=== PATIENT | female | born 1990 | race Caucasian/White ===

== ENCOUNTER 2017-08-27 22:47 | Emergency (ER) | payer MEDICAID ==
--- NOTE | 2017-08-27 23:24 | PD ---
HPI Chief Complaint Contractions Date Seen: Aug 27, 2017 Time Seen: 23:20 Travel History International Travel<30 Days: No Contact w/Intl Traveler<30Days: No Known Affected Area: No History of Present Illness HPI Patient is 27-year-old white female A1 at 40 weeks and 6 days presents with contractions. Patient scheduled to come in tomorrow night for induction of labor due to being 41 weeks, she is no bleeding or leakage of fluid heart rate tracing is reactive baby is active and she is having contractions on the monitor every 4-5 minutes Weeks Gestation: 40 Para: 4 : 6 History Obstetric History Obstetric History 4 Vaginal deliveries Social History Alcohol Use: No Tobacco Use: No Substance Abuse: No Review of Systems General / Constitutional: No: Fever, Weight Gain, Chills, Other Eyes: No: Diploplia, Blurred Vision, Visual changes, Pain, Photophobia HENT: No: Headaches, Vertigo, Lightheadedness Cardiovascular: No: Irregular Rhythm, Chest Pain or Discomfort, Palpitations, Tachycardia, Syncope, Varicosities, Edema, Cyanosis Respiratory: No: Cough, Short of Breath, Other Gastrointestinal: No: Nausea, Vomiting, Diarrhea Genitourinary: No: Decreased Urinary Output, Oliguria Musculoskeletal: No: Limited ROM, Weakness, Cramping, Edema, Pain Skin: No Rash, No Itching, No Dryness, No Lumps, No Change in Pigmentation, No Change in Nails, No Alopecia, No Lesions Neurologic: No: Weakness, Dizziness, Syncope, Focal Abnormalities, Coordination Problem, Headache, Slurred Speech, Seizures Psychiatric: No: Depression, Suicidal Ideations, Homicidal Ideation Endocrine: No: Heat Intolerance, Cold Intolerance, Polydipsia, Polyuria, Other Physical Exam Narrative GENERAL: Well-nourished, well-developed patient. SKIN: Warm and dry. HEAD: Normocephalic and atraumatic. EYES: No scleral icterus. No injection or drainage. ENT: No nasal drainage noted. Mucous membranes pink. Airway patent. NECK: Supple, trachea midline. No JVD. CARDIOVASCULAR: Regular rate and rhythm without murmurs, gallops, or rubs. RESPIRATORY: Breath sounds equal bilaterally. No accessory muscle use. BREASTS: Bilateral exam showed no masses , no retractions, no nipple discharge. ABDOMEN/GI: Abdomen soft, non-tender, bowel sounds present, no rebound, no guarding Gravid to [-40] weeks size Fundal Height: [40-] GENITOURINARY: External Genitalia: intact and normal in appearance BUS glands: [-] Cervix: [-post] Dilatation: [-0] Effacement: [0-] Station: [-3] Presentation: [vtx-] Membranes: [intact ] Uterine Contractions: [q 5 min-] FHT's: Category: [1-] Baseline: [-122] Reactive: [yes-] Variability: [mod-] Decels: [0-] EXTREMITIES: No cyanosis or edema. BACK: Nontender without obvious deformity. No CVA tenderness. NEUROLOGICAL: Awake and alert. Motor and sensory grossly within normal limits. Five out of 5 muscle strength in all muscle groups. Normal speech. MDM Interpretation(s) Patient is 27-year-old white female 40-41 weeks presents with contractions. She is a patient Nancy Kerns that was scheduled,. Tomorrow night for a scheduled induction for postdates. Here tonight cervix is fingertip thick and high, contractions are regular but not very painful, has no leakage of bleeding. Plan Plan to discharge patient home she is not in labor right now, she is to return tomorrow night for scheduled induction she may commence sooner if contractions she's having now Worsen and strength and pain Diagnosis Diagnosis: Primary Impression: False labor at or after 37 completed weeks of gestation, antepartum Disposition: 01 DISCHARGE HOME Condition: Stable Ramirez Barbosa II, MD Aug 27, 2017 23:24
== END 2017-08-27 23:33 | disposition home or self-care (01) ==
LOC: HOBED 22:47
DX: O47.1 False labor at or after 37 completed weeks of gestation (principal); Z3A.40 40 weeks gestation of pregnancy
CPT/HCPCS: 59025

== ENCOUNTER 2017-08-28 20:10 | Inpatient (IN) | payer MEDICAID ==
[~2017-08-28] VITALS: Ht 165.1 cm; Wt 71.2 kg
[2017-08-28] MEDS ORDERED: LACTATED RINGER'S 1000 ML INJ 1,000 ML IV PRN (21:36)
[2017-08-28] MEDS: LACTATED RINGER'S 1000 ML INJ 1,000 ML IV SCH ×2 (21:36→22:05)
[2017-08-28] MEDS ORDERED: SODIUM CHLOR 0.9% 1000 ML INJ 1,000 ML OTHER PRN (21:36)
[2017-08-28] MEDS ORDERED: SODIUM CHLORIDE 0.9% FLUSH 10 ML FLUSH IV FLUSH PRN (21:45)
[2017-08-28] MEDS ORDERED: SODIUM CHLORID 0.9% 500 ML INJ 500 ML IV PRN (21:45)
[2017-08-28] MEDS ORDERED: MISOPROSTOL 100 MCG TAB VAGINAL ONE (21:45)
[2017-08-28] MEDS ORDERED: LIDOCAINE HCL 1% 50 ML VIAL I-DERMAL PRN (21:45)
[2017-08-28] MEDS ORDERED: MINERAL OIL 10 ML VIAL TOPICAL PRN (21:45)
[2017-08-28] MEDS ORDERED: LIDOCAINE HCL 1% 50 ML VIAL INFIL PRN (21:45)
[2017-08-28] MEDS ORDERED: OXYTOCIN 30 UNITS-500ML PREMIX 500 ML IV ONE (21:45)
[2017-08-28] MEDS ORDERED: MISOPROSTOL 100 MCG TAB PO ONE (21:45)
[2017-08-28] MEDS ORDERED: ONDANSETRON HCL 4 MG/2 ML VIAL IV PUSH PRN (21:45)
--- NOTE | 2017-08-28 21:52 | HHI.HP ---
HPI Chief Complaint Postdates Date Seen: Aug 28, 2017 Time Seen: 21:46 Travel History International Travel<30 Days: No Contact w/Intl Traveler<30Days: No Known Affected Area: No History of Present Illness HPI 27-year-old 6 para 4 AB 1 at 41 and one sevenths weeks gestation by midtrimester ultrasound who received care with Nancy Kerns. She came to the triage unit last night for evaluation and was scheduled for induction of labor due to postdates . History Past Medical History Medical History: Denies Significant Hx Obstetric History Obstetric History 4 term vaginal deliveries without complication. Her youngest is 1 year. Past Surgical History Surgical History: No Previous Surgery Family History Family History: Negative Social History Alcohol Use: No Tobacco Use: No (stop this ) Substance Abuse: No Allergies-Medications (Allergen,Severity, Reaction): Coded Allergies: No Known Allergies (Verified Allergy, Unknown, 08/28/17) Review of Systems Except as stated in HPI: all other systems reviewed are Neg Physical Exam Narrative GENERAL: Well-nourished, well-developed patient. SKIN: Warm and dry. HEAD: Normocephalic and atraumatic. EYES: No scleral icterus. No injection or drainage. ENT: No nasal drainage noted. Mucous membranes pink. Airway patent. NECK: Supple, trachea midline. No JVD. CARDIOVASCULAR: Regular rate and rhythm without murmurs, gallops, or rubs. RESPIRATORY: Breath sounds equal bilaterally. No accessory muscle use. ABDOMEN/GI: Abdomen soft, non-tender, bowel sounds present, no rebound, no guarding Gravid to [-] weeks size Fundal Height: [-] GENITOURINARY: External Genitalia: intact and normal in appearance BUS glands: [Normal-] Cervix: [-] Dilatation: [-1] Effacement: [50-] Station: [--2] Presentation: [-Vertex] Membranes: [intact] Uterine Contractions: [-Rare irregular] FHT's: Category: [1-] Baseline: [-] Reactive: [-] Variability: [-] Decels: [-] EXTREMITIES: No cyanosis or edema. BACK: Nontender without obvious deformity. No CVA tenderness. NEUROLOGICAL: Awake and alert. Motor and sensory grossly within normal limits. Five out of 5 muscle strength in all muscle groups. Normal speech. Caprini VTE Risk Assessment Caprini VTE Risk Assessment: Mod/High Risk (score >= 2) Caprini Risk Assessment Model Point Value = 1 Point Value = 2 Point Value = 3 Point Value = 5 Age 41-60 Minor surgery BMI > 25 kg/m2 Swollen legs Varicose veins or History of unexplained or recurrent spontaneous Oral contraceptives or hormone replacement Sepsis (< 1 month) Serious lung disease, including pneumonia (< 1 month) Abnormal pulmonary function Acute myocardial infarction Congestive heart failure (< 1 month) History of inflammatory bowel disease Medical patient at bed rest Age 61-74 Arthroscopic surgery Major open surgery (> 45 min) Laparoscopic surgery (> 45 min) Malignancy Confined to bed (> 72 hours) Immobilizing plaster cast Central venous access Age >= 75 History of VTE Family history of VTE Factor V Leiden Prothrombin [id number] Lupus anticoagulant Anticardiolipin antibodies Elevated serum homocysteine Heparin-induced thrombocytopenia Other congenital or acquired thrombophilia Stroke (< 1 month) Elective arthroplasty Hip, pelvis, or leg fracture Acute spinal cord injury (< 1 month) Prophylaxis Regimen Total Risk Factor Score Risk Level Prophylaxis Regimen 0-1 Low Early ambulation 2 Moderate Order ONE of the following: *Sequential Compression Device (SCD) *Heparin 5000 units SQ BID 3-4 Higher Order ONE of the following medications: *Heparin 5000 units SQ TID *Enoxaparin/Lovenox 40 mg SQ daily (WT < 150 kg, CrCl > 30 mL/min) *Enoxaparin/Lovenox 30 mg SQ daily (WT < 150 kg, CrCl > 10-29 mL/min) *Enoxaparin/Lovenox 30 mg SQ BID (WT < 150 kg, CrCl > 30 mL/min) AND/OR *Sequential Compression Device (SCD) 5 or more Highest Order ONE of the following medications: *Heparin 5000 units SQ TID (Preferred with Epidurals) *Enoxaparin/Lovenox 40 mg SQ daily (WT < 150 kg, CrCl > 30 mL/min) *Enoxaparin/Lovenox 30 mg SQ daily (WT < 150 kg, CrCl > 10-29 mL/min) *Enoxaparin/Lovenox 30 mg SQ BID (WT < 150 kg, CrCl > 30 mL/min) AND *Sequential Compression Device (SCD) Data Data Vital Signs Reviewed: Yes Orders Orders Admit To Inpatient (08/28/17 ) Diet Liquid (08/29/17 Breakfast) Activity Oob Ad Hayley (08/28/17 21:36) ^ Labor Induction (08/28/17 21:36) ^ Vaginal Insert (08/28/17 21:36) ^ Vaginal Lavage (08/28/17 21:36) Heart (08/28/17 21:36) Misoprostol (Cytotec) (08/28/17 21:45) Misoprostol (Cytotec) (08/29/17 01:45) Lactated Ringer's 1000 Ml Inj (Lr 1000 M (08/28/17 21:36) Sodium Chloride 0.9% Flush (Ns Flush) (08/29/17 09:00) Sodium Chloride 0.9% Flush (Ns Flush) (08/28/17 21:45) Sodium Chlor 0.9% 1000 Ml Inj (Ns 1000 M (08/28/17 21:36) Misoprostol (Cytotec) (08/28/17 21:45) Inpatient Certification (08/28/17 ) Code Status (08/28/17 21:36) Vital Signs (Adult) .Per protocol (08/28/17 21:36) Heart (08/28/17 21:36) Amnioinfusion (08/28/17 21:36) Urinary Catheter Management .ONCE (08/28/17 21:36) Lactated Ringer's 1000 Ml Inj (Lr 1000 M (08/28/17 21:36) Lactated Ringer's 1000 Ml Inj (Lr 1000 M (08/28/17 21:36) Sodium Chlorid 0.9% 500 Ml Inj (Ns 500 M (08/28/17 21:45) Sodium Chlor 0.9% 1000 Ml Inj (Ns 1000 M (08/28/17 21:56) Lidocaine 1% Inj (50 Ml) (Xylocaine 1% I (08/28/17 21:45) Ondansetron Inj (Zofran Inj) (08/28/17 21:45) Fentanyl Inj (Fentanyl Inj) (08/28/17 21:45) Penicillin G Potassium Inj (Pfizerpen-G (08/28/17 21:45) Penicillin G Potassium Inj (Pfizerpen-G (08/29/17 01:45) Complete Blood Count With Diff (08/28/17 21:36) Hold Clot (08/28/17 21:36) Abo/Rh Blood Type (08/28/17 21:36) Drug Screen, Random Urine (08/28/17 21:36) Resp Oxygen Non Rebreathe Mask (08/28/17 ) ^ Epidural / Intrathecal Infus (08/28/17 21:36) Oxytocin 30 Units-500ml Premix (Pitocin (08/28/17 21:45) Lidocaine 1% Inj (50 Ml) (Xylocaine 1% I (08/28/17 21:45) Light Mineral Oil (Muri-Lube Oil) (08/28/17 21:45) Specimen To Be Collected PRN (08/28/17 21:36) Group B Strep: Positive Labs A positive, rubella immune, RPR nonreactive, hepatitis B negative, HIV negative , GC and Chlamydia negative Assessment/Plan Assessment and Plan Assessment: 27-year-old grand multipara at 41 weeks 1 day gestation by midtrimester ultrasound admitted for cervical ripening and induction Plan: Cytotec risks benefits and alternatives were reviewed with the patient and she consents to this. GBS prophylaxis Kee Law MD Aug 28, 2017 21:52
[2017-08-28] MEDS ORDERED: SODIUM CHLOR 0.9% 1000 ML INJ 1,000 ML IV PRN (21:56)
[2017-08-28] MEDS ORDERED: PENICILLIN G POTASSIUM INJ 5,000,000 UNITS in SODIUM CHLORIDE 0.9% INJ 100 ML IV ONE (22:00)
[2017-08-28 22:37] VITALS: BP 107/62; PULSE 73
[2017-08-28 22:45] VITALS: RESP 18
[2017-08-28 23:01] LABS: AUTOMATED NEUTROPHIL # 7.9 TH/MM3 (1.8-7.7); BASOPHIL # 0.1 TH/MM3 (0-0.2); BASOPHIL % 0.5 % (0.0-2.0); EOSINOPHIL # 0.1 TH/MM3 (0-0.4); EOSINOPHIL % 0.9 % (0.0-4.0); HEMATOCRIT 31.1 % (35.0-46.0); HEMO FLAGS DIFF FINAL; LYMPH % 24.1 % (9.0-44.0); LYMPHOCYTE # 2.8 TH/MM3 (1.0-4.8); MEAN CELL VOLUME 81.1 FL (80.0-100.0); MEAN CORPUSCULAR HEMOGLOBIN 27.4 PG (27.0-34.0); MEAN CORPUSCULAR HGB CONC 33.8 % (32.0-36.0); MONO % 6.4 % (0.0-8.0); NEUT % 68.1 % (16.0-70.0); PLATELET COUNT 271 TH/MM3 (150-450); RED BLOOD COUNT 3.84 MIL/MM3 (4.00-5.30); RED CELL DISTRIBUTION WIDTH 13.6 % (11.6-17.2); WHITE BLOOD COUNT 11.6 TH/MM3 (4.0-11.0)
[2017-08-28] MEDS ORDERED: fentaNYL 2MCG-BUPIV 0.125% INJ 100 ML ONE (23:54)
[2017-08-28 23:55] VITALS: PULSE 91; O2SAT 100
[2017-08-28] MEDS ORDERED: ePHEDrine/NS 25 MG/5 ML SYR ONE (23:56)
[2017-08-29] VITALS (42 sets, daily range): BP systolic 95–127; BP diastolic 36–91; PULSE 53–117; RESP 14–16; TEMP 97.9–99.1; O2SAT 99–100
[2017-08-29] MEDS ORDERED: NO SYSTEM NARCOTICS PRN (01:00)
[2017-08-29] MEDS ORDERED: DO NOT ADMINISTER ANTICOAGULANTS PRN (01:00)
[2017-08-29] MEDS ORDERED: ePHEDrine/NS 25 MG/5 ML SYR IV PUSH PRN (01:00)
[2017-08-29] MEDS ORDERED: MISOPROSTOL 100 MCG TAB VAGINAL PRN (01:45)
[2017-08-29] MEDS: PENICILLIN G POTASSIUM INJ 2,500,000 UNITS in SODIUM CHLORIDE 0.9% INJ 100 ML IV SCH ×3 (04:54→19:37)
[2017-08-29] MEDS: fentaNYL 2MCG-BUPIV 0.125% 100 ML EPIDURAL SCH ×2 (04:54→06:48)
[2017-08-29] MEDS: LACTATED RINGER'S 1000 ML INJ 1,000 ML IV SCH ×4 (04:55→19:38)
[2017-08-29] MEDS ORDERED: OXYTOCIN 30 UNITS-500ML PREMIX 500 ML ONE (07:54)
[2017-08-29] MEDS ORDERED: BENZOCAINE 20% TOPICAL SPRAY 60 ML CAN TOPICAL PRN (08:15)
[2017-08-29] MEDS ORDERED: SODIUM CHLORIDE 0.9% FLUSH 10 ML FLUSH IV FLUSH PRN (08:15)
[2017-08-29] MEDS ORDERED: ZOLPIDEM TARTRATE 5 MG TAB PO PRN (08:15)
[2017-08-29] MEDS ORDERED: WITCH HAZEL 50%/GLYCERIN 12.5% 40 PAD JAR TOPICAL PRN (08:15)
[2017-08-29] MEDS ORDERED: ALUMINUM/MAGNESIUM/SIMETH 30 ML CUP PO PRN (08:15)
[2017-08-29] MEDS ORDERED: DOCUSATE SODIUM 50 MG/SENNA 8.6 MG TAB PO PRN (08:15)
[2017-08-29] MEDS ORDERED: OXYTOCIN 30 UNITS-500ML PREMIX 500 ML IV SCH (08:15)
[2017-08-29] MEDS ORDERED: ONDANSETRON ODT 4 MG TAB PO PRN (08:15)
--- NOTE | 2017-08-29 08:23 | PD.OB.DELI ---
Weeks gestation: 41 Gest age assessed date: Aug 28, 2017 Gest age assessed time: 20:00 Pt started active labor?: Yes Active labor start date: Aug 28, 2017 Active labor start time: 23:30 Medical induction of labor?: Yes Medical induction start date: Aug 28, 2017 Medical induction start time: 20:00 Artificial rupture of membrane: No Anesthesia: Epidural Episiotomy: None Vaginal Delivery: Normal Presentation: Occiput anterior Delayed cord clamping (45 sec): Yes : Male Delivery date: Aug 29, 2017 Delivery time: 07:52 One Minute : 8 Five Minute : 9 Weight: 3740 Placenta: Spontaneous delivery Laceration: No lacerations Estimated blood loss: 50 Additional Information The patient pushed with just 2 contractions to deliver the OA vertex over an intact perineum. The shoulders were delivered by maternal effort without delay. The baby was passed to maternal abdomen where delayed cord clamping was accomplished. Cord blood sample was obtained. The placenta passed spontaneously. It was grossly normal and apparently intact. No lacerations. Quantitative blood loss 50 cc. Hemostasis was obtained with massage and IV Pitocin solution. Kee Law MD Aug 29, 2017 08:23
[2017-08-29] MEDS ORDERED: SODIUM CHLORIDE 0.9% FLUSH 10 ML FLUSH IV FLUSH SCH (09:00)
[2017-08-29] MEDS: IBUPROFEN 800 MG TAB PO PRN ×2 (10:55→22:04)
[2017-08-29] MEDS ORDERED: DIPHTH/TETANUS/ACEL PERTUSSIS (BOOSTER) 0.5 ML VIAL/PFS IM ONE (16:00)
[2017-08-29] MEDS ORDERED: MEASLES, MUMPS, RUBELLA VACCINE 0.5 ML VIAL SQ ONE (16:00)
[2017-08-29] MEDS: ACETAMINOPHEN 325 MG TAB PO PRN ×2 (16:16→22:05)
[2017-08-29] MEDS: SODIUM CHLORIDE 0.9% FLUSH 10 ML FLUSH IV FLUSH SCH (19:38)
[2017-08-30] MEDS: PENICILLIN G POTASSIUM INJ 2,500,000 UNITS in SODIUM CHLORIDE 0.9% INJ 100 ML IV SCH (01:53)
[2017-08-30] MEDS: IBUPROFEN 800 MG TAB PO PRN ×2 (07:10→14:39)
[2017-08-30] MEDS: ACETAMINOPHEN 325 MG TAB PO PRN (07:10)
[2017-08-30 07:20] VITALS: BP 108/70; PULSE 54; RESP 18; TEMP 97.8
--- NOTE | 2017-08-30 08:36 | HHI.OB ---
Subjective Post Day: 1 Remarks Patient is a 27-year-old delivered at 41 weeks and 2 days. Patient is day 1 after NVD. Patient's pain is well-controlled. Patient reports eating and drinking without any nausea or vomiting. Patient reports minimal bleeding. Patient has passed gas and bowel movements. Patient is walking without lower extremity pain or shortness of breath. Patient reports desire for contraception and formula-feeding. Objective Vitals/I&O Vital Signs Date Time Temp Pulse Resp B/P (MAP) Pulse Ox O2 Delivery O2 Flow Rate FiO2 08/29/17 19:47 97.9 53 16 104/59 (74) Objective Remarks GENERAL: Well-nourished, well-developed patient. CARDIOVASCULAR: Regular rate and rhythm without murmurs, gallops, or rubs. RESPIRATORY: Breath sounds equal bilaterally. No accessory muscle use. ABDOMEN/GI: Abdomen soft, non-tender. Fundus: Firm, non-tender at umbilicus. GENITOURINARY: Light to moderate bleeding. EXTREMITIES: No cyanosis or edema, non-tender, without signs of DVT. Medications and IVs Current Medications Medications (Trade) Dose Ordered Sig/Sharad Route Start Time Stop Time Status Last Admin Lactated Ringer's 1,000 ml @ 125 mls/hr Q8H IV 08/28/17 21:36 08/29/17 06:48 (NS Flush) 2 ml BID IV FLUSH 08/29/17 09:00 (NS Flush) 2 ml UNSCH PRN IV FLUSH 08/28/17 21:45 Lactated Ringer's 1,000 ml @ 125 mls/hr Q8H IV 08/28/17 21:36 Lactated Ringer's 1,000 ml @ 3,000 mls/hr Q20M PRN IV 08/28/17 21:36 08/29/17 00:20 Sodium Chloride 500 ml @ 1,000 mls/hr ONCE PRN IV 08/28/17 21:45 09/02/17 21:44 Sodium Chloride 1,000 ml @ 100 mls/hr Q10H PRN IV 08/28/17 21:56 (Xylocaine 1% Inj (50 ml)) 0.1 ml UNSCH X1 PRN I-DERMAL 08/28/17 21:45 08/31/17 21:44 (Zofran Inj) 4 mg Q6H PRN IV PUSH 08/28/17 21:45 (fentaNYL INJ) 50 mcg Q1H PRN IV PUSH 08/28/17 21:45 Penicillin G Potassium 3009081 units/Sodium Chloride 100 ml @ 200 mls/hr Q4H IV 08/29/17 02:00 08/29/17 06:48 (Xylocaine 1% Inj (50 ml)) 10 ml UNSCH X1 PRN INFIL 08/28/17 21:45 08/30/17 21:44 (Muri-Lube Oil) 10 ml UNSCH PRN TOPICAL 08/28/17 21:45 Fentanyl/ Bupivacaine HCl 100 ml @ 0 mls/hr TITRATE EPIDURAL 08/29/17 01:00 08/29/17 06:48 (NS Flush) 2 ml BID IV FLUSH 08/29/17 09:00 (NS Flush) 2 ml UNSCH PRN IV FLUSH 08/29/17 08:15 (Tylenol) 650 mg Q4H PRN PO 08/29/17 08:15 08/30/17 07:10 (Motrin) 800 mg Q8H PRN PO 08/29/17 08:15 08/30/17 07:10 (Americaine 20% Top Spr) 1 spray Q4H PRN TOPICAL 08/29/17 08:15 08/30/17 07:12 (Tucks Pads) 1 applic QID PRN TOPICAL 08/29/17 08:15 08/30/17 07:11 (Rima-Colace) 2 tab Q12H PRN PO 08/29/17 08:15 (Ambien) 5 mg HS PRN PO 08/29/17 08:15 (Mag-Al Plus Susp Liq) 15 ml Q8H PRN PO 08/29/17 08:15 (Zofran Odt) 4 mg Q6H PRN PO 08/29/17 08:15 Assessment/Plan Problem List: (1) NVD (normal vaginal delivery) ICD Codes: O80 - Encounter for full-term uncomplicated delivery Assessment and Plan Patient is a 27-year-old delivered at 41 weeks and 2 days. Patient is day 1 after NVD. Patient was counseled to do 6 weeks of pelvic rest. Patient was counseled to follow up in 6 weeks. Patient requested follow-up and contraception. --AF VSS --Continue routine care --Motrin and Percocet when necessary for pain --Encourage OOB --Pelvic rest for 6 weeks will need follow-up appointment at that time. --Contraception: Depo-Provera --Anticipate discharge today or tomorrow d/w Dr. Espinoza Discharge Planning --Anticipate discharge today or tomorrow Gregg Pedro MD R2 Aug 30, 2017 08:36
[2017-08-30] MEDS ORDERED: medroxyPROGESTERone ACETATE SUSP 150 MG/ML SYRINGE IM ONE (08:45)
[2017-08-30] MEDS: oxyCODONE/ACETAMINOPHEN 5 MG/325 MG TAB PO PRN ×3 (09:51→19:23)
[2017-08-30 20:00] VITALS: BP 118/70; PULSE 67; RESP 20; TEMP 98.3
[2017-08-31] MEDS: oxyCODONE/ACETAMINOPHEN 5 MG/325 MG TAB PO PRN ×3 (00:04→11:20)
[2017-08-31] MEDS: IBUPROFEN 800 MG TAB PO PRN ×3 (00:05→12:58)
[2017-08-31 08:00] VITALS: BP 123/74; PULSE 69; RESP 16; TEMP 98.1; O2SAT 100
[2017-08-31] MEDS: SODIUM CHLORIDE 0.9% FLUSH 10 ML FLUSH IV FLUSH SCH ×2 (08:21→09:23)
--- NOTE | 2017-08-31 09:07 | HHI.OB ---
Subjective Remarks Patient is a 27-year-old delivered at 41 weeks and 2 days. Patient is day 2 after NVD. Patient's pain is well-controlled. Patient reports eating and drinking without any nausea or vomiting. Patient reports minimal bleeding. Patient has passed gas and bowel movements. Patient is walking without lower extremity pain or shortness of breath. Patient has received Depo shot for contraception and plans to formula feed. Objective Vitals/I&O Vital Signs Date Time Temp Pulse Resp B/P (MAP) Pulse Ox O2 Delivery O2 Flow Rate FiO2 08/31/17 08:00 98.1 69 16 123/74 (90) 100 08/30/17 20:00 98.3 67 20 118/70 (86) Objective Remarks GENERAL: Well-nourished, well-developed patient. CARDIOVASCULAR: Regular rate and rhythm without murmurs, gallops, or rubs. RESPIRATORY: Breath sounds equal bilaterally. No accessory muscle use. ABDOMEN/GI: Abdomen soft, non-tender. Fundus: Firm, non-tender at umbilicus. GENITOURINARY: Light to moderate bleeding. EXTREMITIES: No cyanosis or edema, non-tender, without signs of DVT. Medications and IVs Current Medications Medications (Trade) Dose Ordered Sig/Sharad Route Start Time Stop Time Status Last Admin (NS Flush) 2 ml BID IV FLUSH 08/29/17 09:00 (NS Flush) 2 ml UNSCH PRN IV FLUSH 08/29/17 08:15 (Tylenol) 650 mg Q4H PRN PO 08/29/17 08:15 08/30/17 07:10 (Motrin) 800 mg Q8H PRN PO 08/29/17 08:15 08/31/17 06:29 (Americaine 20% Top Spr) 1 spray Q4H PRN TOPICAL 08/29/17 08:15 08/30/17 07:12 (Tucks Pads) 1 applic QID PRN TOPICAL 08/29/17 08:15 08/30/17 07:11 (Rima-Colace) 2 tab Q12H PRN PO 08/29/17 08:15 (Ambien) 5 mg HS PRN PO 08/29/17 08:15 (Mag-Al Plus Susp Liq) 15 ml Q8H PRN PO 08/29/17 08:15 (Zofran Odt) 4 mg Q6H PRN PO 08/29/17 08:15 (Percocet 5-325 Mg) 1 tab Q4H PRN PO 08/30/17 09:45 08/30/17 14:39 (Percocet 5-325 Mg) 2 tab Q4H PRN PO 08/30/17 09:45 08/31/17 06:29 Assessment/Plan Problem List: (1) NVD (normal vaginal delivery) ICD Codes: O80 - Encounter for full-term uncomplicated delivery Assessment and Plan Patient is a 27-year-old delivered at 41 weeks and 2 days. Patient is day 2 after NVD. Patient was counseled to do 6 weeks of pelvic rest. Patient was counseled to follow up in 6 weeks. Patient requested follow-up and has received Depo shot for contraception. --AF VSS --Continue routine care --Motrin and Percocet when necessary for pain --Encourage OOB --Pelvic rest for 6 weeks will need follow-up appointment at that time. --Contraception: Depo-Provera --Anticipate discharge today d/w Dr. Barbosa Discharge Planning --Anticipate discharge today Olu Perez MD R1 Aug 31, 2017 09:07
[2017-08-31] MEDS ORDERED: IBUP1TAB7 PO (09:08)
--- NOTE | 2017-08-31 09:08 | HHI.DCPOC ---
Discharge Care Plan Report Symptoms to Your Doctor -Temperature above 100.5 degrees -Redness, of incision or excessive or foul smelling drainage -Unusual pain or calf pain -Increased vaginal bleeding -Painful or difficulty urinating -Feelings of extreme sadness or anxiety after 2 weeks Goals to Promote Your Health * To prevent worsening of your condition and complications * To maintain your health at the optimal level Directions to Meet Your Goals Take your medications as prescribed Follow your dietary instruction Follow activity as directed Ensure plenty of rest for recovery Drink fluids for hydration Keep your appointments as scheduled Take your immunizations and boosters as scheduled If your symptoms worsen call your PCP, if no PCP go to Urgent Care Center or Emergency Room Smoking is Dangerous to Your Health. Avoid second hand smoke Call the 24-hour crisis hotline for domestic abuse at Olu Perez MD R1 Aug 31, 2017 09:08
== END 2017-08-31 15:56 | disposition home or self-care (01) | DRG 775 ==
LOC: H2EA 20:10 → H1EA 08-29 10:07
PROVIDERS: ADMIT Obstetrics & Gynecology; ATTEND Obstetrics & Gynecology
PROC: 10E0XZZ Delivery of Products of Conception, External Approach (ICD-10-PCS; principal; 2017-08-29)
PROC: 3E0R3BZ Introduction of Anesthetic Agent into Spinal Canal, Percutaneous Approach (ICD-10-PCS; 2017-08-29)
PROC: 00HU33Z Insertion of Infusion Device into Spinal Canal, Percutaneous Approach (ICD-10-PCS; 2017-08-29)
DX: O48.0 Post-term pregnancy (principal); Z22.330 Carrier of Group B streptococcus; Z37.0 Single live birth; Z3A.41 41 weeks gestation of pregnancy
CPT/HCPCS: 59025; 80307; 85025; 86900; 86901; J1050; J2540; J2590; J7120

== ENCOUNTER → 2017-11-04 | Outpatient (CLI) | payer MEDICAID ==
[~2017-11-04] MED LIST: IBUP1TAB7 PO
[2017-11-04 13:41] LABS: BICARBONATE 26.5 MEQ/L (21.0-32.0); BLOOD UREA NITROGEN 12 MG/DL (7-18); CHLORIDE 111 MEQ/L (98-107); CREATININE 0.72 MG/DL (0.50-1.00); GLOMERULAR FILTRATION RATE 97 ML/MIN (>89); GLUCOSE,FASTING 91 MG/DL (74-99); SODIUM (NA) 142 MEQ/L (136-145)
== END ==
LOC: CPRE 12:35
PROVIDERS: ATTEND Obstetrics & Gynecology
DX: Z01.812 Encounter for preprocedural laboratory examination (principal)
CPT/HCPCS: 36415; 80048; 84703

== ENCOUNTER → 2017-11-09 | Day surgery (SDC) | payer MEDICAID ==
[~2017-11-09] VITALS: Ht 165.1 cm; Wt 62.6 kg
[~2017-11-09] MED LIST changes: +*MEPERIDINE 25 MG INJ VIAL PERIprocedural Use ONLY ONE; +*morphine SULFATE 10 MG/ML PERIprocedure ONLY ONE; +ACETAMINOPHEN 1000 MG/100 ML 100 ML IV ONE; +CHLORHEXIDINE GLUCONATE 2 % 1 PACK (2 CLOTHS) TOPICAL PRN; +DO NOT ADM ANY ANTICOAGULANT DRUGS PRN; +KETOROLAC TROMETHAMINE 30 MG/ML (IVP) VIAL IV PUSH ONE; +KETOROLAC TROMETHAMINE 30 MG/ML (IVP) VIAL ONE; +LACTATED RINGER'S 1000 ML IV PRN; +METOPROLOL TARTRATE 25 MG TAB PO PRN; +MIDAZOLAM HCL 2 MG/2 ML VIAL ONE; +ONDANSETRON HCL 4 MG/2 ML VIAL IV PUSH PRN; +POVIDONE IODINE 5% (ANTISEPSIS KIT) 4 APPLICATIONS EACH NARE PRN; +SODIUM CHLORID 0.9% 500 ML IV PRN; +oxyCODONE/ACETAMINOPHEN 5 MG/325 MG TAB PO PRN
[2017-11-09 15:30] VITALS: BP 119/72; PULSE 59; RESP 20; TEMP 97.5; O2SAT 98
--- NOTE | 2017-11-10 10:53 | MP ---
cc: NICOLA DESAI DATE OF SURGERY 11/09/2017 PREOPERATIVE DIAGNOSIS 1. Menorrhagia. 2. Desires permanent sterilization. POSTOPERATIVE DIAGNOSIS 1. Menorrhagia. 2. Desires permanent sterilization. 3. Moderate pelvic congestion. 4. Pelvic endometriosis. PROCEDURE 1. Examination under anesthesia. 2. Dilation and curettage of the uterus. 3. Laparoscopic exam with bilateral tubal ligation and coagulation of endometriosis. ANESTHESIA General. SURGEON Ant Desai M.D. FINDINGS On examination under anesthesia the vagina was clean, the cervix was clean without lesions. The uterus was normal size, shape and consistency, midplane and freely mobile. The adnexa was negative for masses. D&C revealed a moderate amount of tissue. No polyps were felt or seen. The laparoscopic exam revealed normal uterus, normal tubes, normal ovaries. The posterior cul-de-sac had several spots of small endometriosis which were coagulated. There was moderate pelvic congestion of both infundibulopelvic ligaments. COMPLICATIONS None. COUNTS Correct. ESTIMATED BLOOD LOSS Minimal. CONDITION The patient tolerated the procedure well and went to the recovery room in good condition. PROCEDURE IN DETAIL The patient was taken to the operating room, identified by name band and verbally, given a general anesthetic, prepped and draped in the usual sterile fashion for laparoscopic surgery in the dorsal lithotomy position. A timeout was taken and then we proceeded with the examination under anesthesia with the above findings. A weighted speculum was placed in the vagina. The anterior lip of the cervix was grasped with a single-tooth tenaculum. The cervix was serially dilated without difficulty and using a #1 sharp curette the entire endometrial surface was sharply curetted. A Hulka clamp was placed and attention was turned to the umbilical area. A small subumbilical incision was made and a 5 mm trocar was inserted into the abdomen and pneumoperitoneum was created with 3 liters of CO2. Inferior lateral to the umbilicus a second 5 mm puncture was placed under direct vision without difficulty. The fallopian tubes were grasped bilaterally and burnt in the midposition x3. There was some endometriosis in the posterior cul-de-sac between the uterosacral ligaments and these were coagulated with the bipolar Kleppinger forceps as well. The upper abdomen was inspected. The liver and gallbladder were normal. The remainder of the upper abdomen looked normal. At this time we added a little bit of water, released the air and removed the laparoscopic trocar under direct vision. The second puncture was used to release the remainder of the air. The surgical incisions were repaired with 4-0 Monocryl in a subcuticular manner with excellent results. She tolerated the procedure well and went to the recovery room in good condition. R. MD ALISON Freitas/CHRIS /1:51 PM /10:37 AM
== END | disposition home or self-care (01) ==
LOC: HSDC 09:55
PROVIDERS: ATTEND Obstetrics & Gynecology
DX: N92.0 Excessive and frequent menstruation with regular cycle (principal); N80.3 Endometriosis of pelvic peritoneum; N94.89 Other specified conditions associated with female genital organs and menstrual cycle; Z30.2 Encounter for sterilization
CPT/HCPCS: 00840; 58120; 58662; 58670; 88305; J0131; J1885; J2175; J2250; J2270; J3010